=== PATIENT | male | born 1965 | race Caucasian/White ===

== ENCOUNTER 2023-11-11 22:03 | Emergency (ER) | payer OTHER ==
[2023-11-11 22:24] LABS: BASOPHILS 0.6 % (0-2); EOSINOPHILS 1.3 % (0-6); HEMATOCRIT 41.9 % (35.0-50.0); HEMOGLOBIN 14.3 g/dL (12.0-18.0); LYMPHOCYTES 24.4 % (24-44); MCH 30.3 (27-36); MCHC 34.2 g/dl (30-36); MCV 88.4 fl (81-99); NEUTROPHILS 66.7 % (39-80); PLATELET COUNT 203 K/uL (140-440); RBC 4.74 M/ul (4.3-5.7); RDW 13.6 (10.5-15.0)
[2023-11-11] MEDS ORDERED: SODIUM CHLORIDE 0.9% 1,000 ML IV PRN ×2 (22:30→22:45)
[2023-11-11] MEDS ORDERED: fentaNYL citrate 100 MCG/2 ML VIAL IV ONE (22:30)
[2023-11-11 22:35] LABS: ALBUMIN 3.7 g/dL (3.4-5.0); ALBUMIN/GLOBULIN RATIO 0.95 (1.1-2.4); BILIRUBIN, TOTAL 0.5 ng/dL (0.2-1.0); BUN/CREATININE RATIO 18.33 (6.0-28.6); CALCIUM 8.4 mg/dL (8.5-10.1); CREATININE, SERUM 1.2 mg/dL (0.70-1.30); PROTEIN, TOTAL 7.6 g/dL (6.4-8.2)
[2023-11-11 22:46] LABS: PARTIAL THROMBOPLASTIN TIME 20.9 Sec (22.9-41.3)
[2023-11-11 22:47] LABS: INR 1.03 (0.80-1.30); PROTIME 12.8 Sec (11.2-14.2)
[2023-11-11 23:17] LABS: ABO O; RH POSITIVE
[2023-11-11 23:18] LABS: ANTIBODY SCREEN NEGATIVE
[2023-11-11 23:24] LABS: BILIRUBIN, URINE NEGATIVE (negative); BLOOD/HGB, URINE TRACE-I (Negative); KETONE, URINE NEGATIVE (Negative); LEUK ESTERASE, URINE NEGATIVE (negative); NITRITE, URINE NEGATIVE (negative)
[2023-11-11 23:29] LABS: BACTERIA, URINE RARE /hpf (negative); CASTS, URINE NONE SEEN \\lpf; CRYSTALS, URINE NONE SEEN (0-1+); EPITHELIAL CELLS, URINE SQUAMOUS 1+ /lpf (0-1+); REFLEX CULTURE, URINE No (No); WHITE BLOOD CELLS, URINE 0-1 /HPF (0-5)
[2023-11-12] MEDS ORDERED: HYDROmorphone HCL 1 MG/ML SYR IV ONE (00:30)
[2023-11-12 01:21] VITALS: BP 147/81
== END 2023-11-12 01:46 | disposition short-term general hospital (02) ==
LOC: ED 22:03
PROVIDERS: Emergency Medicine
DX: S33.4XXA Traumatic rupture of symphysis pubis, initial encounter (principal); S33.6XXA Sprain of sacroiliac joint, initial encounter; V80.010A Animal-rider injured by fall from or being thrown from horse in noncollision accident, initial encounter
CPT/HCPCS: 36415; 71045; 73502; 74177; 80053; 81001; 82553; 85025; 85060; 85610; 85730; 86850; 86900; 86901; J1170; J3010; J7030; Q9967

== ENCOUNTER 2025-02-15 07:58 | Day surgery (SDC) | payer OTHER ==
[~2025-02-15] VITALS: Ht 188 cm; Wt 123.0 kg
[~2025-02-15 07:58] MED LIST: CALCIUM500 MG PO; CANDICIDAL CAP1 EACH PO; CINNAMON500 MG PO; COLLAGEN 15001 EACH PO; GARLIC100 MG PO; GLUCOSAMINE1000 MG PO; IBLOOD GLUCOSE TEST STRIP 1 EA TEST VI PRN; L-LYSINE500 M1 PO; LACTATED RINGER'S 1,000 ML IV SCH; LIDOCAINE HCL 1% 5 ML SDV INJ ONE; SILDENAFIL CIT100 MG PO; VITAMIN C500 M4 PO
[2025-02-15 08:12] VITALS: BP 130/73
[2025-02-15] MEDS ORDERED: LIDOCAINE HCL 2% 5 ML SDV ONE (08:37)
--- NOTE | 2025-02-15 09:45 | NUR ---
02/15/25 0945 Yuko Mayer 0929- PT PRESENTS TO PACU, RIGHT LATERAL SIDE, NON REACTIVE TO STIMULUS. O2 AT 4L PER NC, BREATHING EVEN AND NON LABORED WITH OPA IN PLACE. PT ABD ROUND, SOFT. LR INFUSING TO RH IV. ALL MONITORS IN PLACE.
[2025-02-15 10:42] VITALS: BP 135/93
--- NOTE | 2025-02-17 14:29 | PATH ---
[facility] [address], [place] [address] Signed SPECIMEN(S): A COLON POLYP, 130 CM SPECIMEN(S): B SIGMOID POLYP, 50 CM SPECIMEN(S): C SIGMOID POLYP, 30 CM SPECIMEN(S): D RECTAL POLYP, 18 CM SPECIMEN SOURCE: A. COLON POLYP, 130 CM B. SIGMOID POLYP, 50 CM C. SIGMOID POLYP, 30 CM D. RECTAL POLYP, 18 CM CLINICAL HISTORY: Family history of colon cancer FINAL PATHOLOGIC DIAGNOSIS: A. Colon polyp at 130 cm - Tubular adenoma. B. Sigmoid polyp at 50 cm - Hyperplastic colonic mucosa. C. Sigmoid polyp at 30 cm - Hyperplastic polyp. D. Rectal polyp at 18 cm - Hyperplastic polyp. AMB MICROSCOPIC EXAMINATION: Histologic sections of all submitted blocks are examined by light microscopy. These findings, together with the gross examination, support the pathologic diagnosis. GROSS DESCRIPTION: A. The specimen, labeled and designated "[place], colon polyp, 130 cm," is received in formalin and consists of one oliveira soft tissue fragment, 0.4 cm. Entirely submitted in (A1). B. The specimen, labeled and designated "[place], sigmoid polyp, 50 cm," is received in formalin and consists of two oliveira soft tissue fragments, ranging from 0.2-0.3 cm. Entirely submitted in (B1). C. The specimen, labeled and designated "[place], sigmoid polyp, 30 cm," is received in formalin and consists of one oliveira soft tissue fragment, 0.6 cm. Entirely submitted in (C1). D. The specimen, labeled and designated "[place], rectal polyp, 18 cm," is PATIENT NAME: PRERNA LEHMAN PATHOLOGY DATE OF : 61 REPORT #: [id number] PHYSICIAN: RJ CHAVEZ PCP: AMITA BRICENO MD REPORT IS CONFIDENTIAL AND NOT TO BE RELEASED WITHOUT AUTHORIZATION [facility] [address], [place] [address] Signed received in formalin and consists of two oliveira soft tissue fragments, ranging from 0.3-0.5 cm. Entirely submitted in (D1). VB (under the direct supervision of a pathologist) The Gross Description was prepared using a voice recognition system. The report was reviewed for accuracy; however, sound-alike word errors, addition and/or deletions may occur. If there is any question about this report, please contact Client Services. ADDITIONAL NOTES: Immunohistochemical and/or in situ hybridization studies if performed in this case included appropriate positive controls that reacted as expected. This test was developed and its performance characteristics determined by [facility]. It has not been cleared or approved by the U.S. Food and Drug Administration. The FDA has determined that such clearance or approval is not necessary. This test is used for clinical purposes. It should not be regarded as investigational or for research. [facility] is certified under the Clinical Laboratory Improvement Amendments of 1988 (CLIA) as qualified to perform high complexity clinical laboratory testing. PERFORMING LABORATORY: Technical component was performed by [facility], [address] [place] [id number] (CLIA# [id number]). Professional interpretation was performed by [facility] - [address] [id number] Diagnostician: Windy Kolb MD Pathologist Electronically Signed 02/17/2025 Copies: ~ PATIENT NAME: MERCEDEZPRERNADARVIN BAXTER PATHOLOGY DATE OF : 61 REPORT #: [id number] PHYSICIAN: RJ CHAVEZ PCP: AMITA BRICENO MD REPORT IS CONFIDENTIAL AND NOT TO BE RELEASED WITHOUT AUTHORIZATION
== END 2025-02-15 10:25 | disposition home or self-care (01) ==
LOC: DS 07:58
PROVIDERS: ATTEND Surgery
PROC: 0DBN8ZZ Excision of Sigmoid Colon, Via Natural or Artificial Opening Endoscopic (ICD-10-PCS; 2025-02-15)
PROC: 0DBP8ZZ Excision of Rectum, Via Natural or Artificial Opening Endoscopic (ICD-10-PCS; 2025-02-15)
PROC: 0DBK8ZZ Excision of Ascending Colon, Via Natural or Artificial Opening Endoscopic (ICD-10-PCS; principal; 2025-02-15 08:50)
DX: Z12.11 Encounter for screening for malignant neoplasm of colon (principal); D12.2 Benign neoplasm of ascending colon; K63.5 Polyp of colon; K62.1 Rectal polyp; E78.5 Hyperlipidemia, unspecified; N52.9 Male erectile dysfunction, unspecified; Z79.899 Other long term (current) drug therapy; Z80.0 Family history of malignant neoplasm of digestive organs
CPT/HCPCS: 00811; 88305; J2003; J2704; J7121